=== PATIENT | male | born 1950 | race Two or more races ===

== ENCOUNTER 2023-02-06 13:29 | Emergency (ER) | payer MEDICARE ==
[~2023-02-06] VITALS: Ht 165.1 cm; Wt 61.0 kg
[2023-02-06 14:42] VITALS: O2SAT 98
[2023-02-06 14:45] LABS: BASOPHILS % 0.3 % (0.0-2.0); EOSINOPHILS % 1.9 % (0.0-5.0); HEMATOCRIT. 35.6 % (42.0-52.0); HEMOGLOBIN. 12.3 g/dL (14.0-18.0); MEAN CORPUSCULAR HEMOGLOBIN 30.2 pg (28.0-32.0); MEAN CORPUSCULAR VOLUME 87.4 fL (80.0-94.0); MEAN PLATELET VOLUME 7.2 fl (7.4-10.4); MONOCYTES % 11.9 % (2.0-8.0); NEUTROPHILS % 55.9 % (40.0-76.0); PLATELET 274 x1000/uL (130-400); RED BLOOD CELL COUNT 4.07 mill/uL (4.7-6.1); RED CELL DISTRIBUTION WIDTH 12.5 % (11.6-14.6)
[2023-02-06 14:52] LABS: CHLORIDE 103 mEq/L (98-107)
[2023-02-06] MEDS ORDERED: NAPR-681 MT (17:47)
[2023-02-06 18:49] VITALS: BP 142/78; PULSE 68; RESP 16; TEMP 98.8
== END 2023-02-06 19:01 | disposition home or self-care (01) ==
LOC: ER 13:29
DX: M79.10 Myalgia, unspecified site (principal); R20.0 Anesthesia of skin
CPT/HCPCS: 36415; 71045; 80053; 85025; 99284